=== PATIENT | female | born 1965 ===

== ENCOUNTER 2021-06-12 18:59 | Outpatient (REF) | payer SELFPAY ==
[2021-06-14 10:48] LABS: COVID-19 RT-PCR UVMMC Result Negative (Negative)
== END 2021-06-12 19:00 | disposition home or self-care (01) ==
LOC: LBN 18:59
PROVIDERS: Visit Provider Physician Assistant Medical
DX: J34.89 Other specified disorders of nose and nasal sinuses (principal); Z20.822 Contact with and (suspected) exposure to COVID-19
CPT/HCPCS: U0003